=== PATIENT | female | born 1960 | race Caucasian/White ===

== ENCOUNTER 2022-03-15 18:53 | Emergency (ER) | payer OTHER, SELFPAY ==
--- NOTE | ~2022-03-15 | XR_ITS ---
EXAM: XR knee RT min 4V HISTORY: HEARAD JULIETA WHILE WALKING 03/10/22. LAT-MED PAIN. COMPARISON: None available FINDINGS: Normal mineralization. No fracture or dislocation. No lytic or blastic lesion. Tricompartm ental osteoarthritis, severe in the medial compartment. No erosion or periosteal change. Moderate vol ume joint fluid. Soft tissues within normal limits. IMPRESSION: No acute osseous finding in the right knee. Moderate right knee joint effusion. Reviewed, dictated and finalized at location K.
--- NOTE | 2022-03-15 18:57 | ED.LOWEXIN ---
HPI - Extremity Injury (Lower) General Chief Complaint: Extremity Injury, Lower Stated Complaint: Right Knee Injury Time Seen by Provider: 03/15/22 18:57 Source: patient Mode of arrival: ambulatory Limitations: no limitations History of Present Illness HPI Narrative: Ms. Bolanos is a 61-year-old female patient presenting to the clinic today with complaints of right knee pain after injury. She reports she was walking in the backyard on Tuesday of last week and felt a pop in her knee and had pain and swelling. Reports pain is at times worse with ambulation however she denies any catching while walking. She denies falling or any twisting action when this occurred. Related Data Home Medications Medication Instructions Recorded Confirmed Fish Oil 03/15/22 aspirin [Aspir-Low] 81 mg PO DAILY 03/15/22 03/15/22 Allergies Allergy/AdvReac Type Severity Reaction Status Date / Time No Known Allergies Allergy Verified 03/15/22 19:11 Review of Systems Review of Systems: Pertinent positives per HPI. Patient denies any fever, chills, rash, headache, visual changes, dizziness, cough, runny nose, sore throat, shortness of breath, chest pain, palpitations, nausea, vomiting, diarrhea, constipation, abdominal pain, or any urinary issues. PMFSH Comments At the time of my signature, I reviewed and agree with the nursing past medical, surgical, social, and family history. There is no relevant family history pertinent to the patient complaint. Exam Narrative: General: Well-developed, well nourished, in no apparent distress Head: Normocephalic, atraumatic. Cardio: Regular rate and rhythm, s1 and s2 normal, no murmur appreciated. Resp: Clear to auscultation bilaterally, no rhonchi, rales, wheezing or rubs. Musculoskeletal: No deformity, tender to the anterior superior lateral right knee joint, no pain with ROM, grossly normal range of motion with crepitus felt in the knee joint, muscle strength strong and equal, peripheral pulse strong, no edema, no cyanosis, normal gait and station Course Course Emergency Course: Portions of this record may have been created with voice recognition software. Level of Care: Express Care Visit Vital Signs Vital signs: Vital signs reviewed MDM - Extremity Injury (Lower) MDM Narrative Medical decision making narrative: At the time of visit patient is resting comfortably on the exam table. Has pain to medial and lateral superior knee joint, x-ray shows tricompartment mental arthritis with a moderate knee effusion. Robert wrap applied and discussed supportive measures for patient. Copy of x-ray was given to patient and she is to follow-up with her PCP in 3 to 5 days if symptoms persist or sooner if they worsen. Discussed possibility of needing knee tapped if pain gets worse Discharge Plan Discharge Clinical Impression: Arthritis Right knee sprain Qualifiers: Encounter type: initial encounter Involved ligament of knee: unspecified ligament Qualified Code(s): S83.91XA - Sprain of unspecified site of right knee, initial encounter Patient Disposition: Home, Self-Care Condition: Stable Instructions: Antibiotic Form, Osteoarthritis (ED), Swollen Knee Joint (ED) Additional Instructions: X-rays negative for any fracture or malalignment however, there is a moderate knee effusion as well as arthritis. Rest, ice, and elevate Wear Robert wrap as discussed. Tylenol/Motrin as needed for pain Follow-up with your PCP in 3 to 5 days if symptoms persist or sooner if they worsen Prescriptions: No Action aspirin [Aspir-Low] 81 mg Tablet,Delayed Release (Dr/Ec) 81 mg PO DAILY RF: 0 Fish Oil RF: 0 Follow-up/Referrals: PHYSICIAN NOT ON STAFF,NONSTAFF [Primary Care Provider] - Time of Disposition: 19:35 Quality NIHSS Nursing Documentation ED NIHSS nursing documentation: reviewed/agree
[2022-03-15 19:05] VITALS: BP 142/96; PULSE 65; RESP 18; TEMP 36.7; O2SAT 100
== END 2022-03-15 19:40 | disposition home or self-care (01) ==
PROVIDERS: Emergency Provider Nurse Practitioner Family
DX: M17.11 Unilateral primary osteoarthritis, right knee (principal); S83.91XA Sprain of unspecified site of right knee, initial encounter; X58.XXXA Exposure to other specified factors, initial encounter; Y93.01 Activity, walking, marching and hiking; Z79.82 Long term (current) use of aspirin
CPT/HCPCS: 73564; 99213; G0463